=== PATIENT | female | born 1985 | race Caucasian/White ===

== ENCOUNTER 2025-06-05 16:02 | Outpatient (CLI) | payer OTHER ==
[2025-06-05 15:00] VITALS: BP 121/84
[2025-06-05 17:00] LABS: BASO % 0.2 % (0.1-1.2); EOS # 0.01 (0.04-0.54); EOS % 0.1 % (0.7-7.0); LYMPH # 0.89 (1.18-3.74); LYMPH % 8.9 % (19.3-53.1); MEAN PLATELET VOLUME 11.60 fl (9.4-12.4); MONO # 0.65 (0.24-0.82); MONO % 6.5 % (4.7-12.5); NEUT # 8.40 (1.56-6.13); NEUT % 84.0 % (34.0-71.1); RED CELL DISTRIBUTION WIDTH 16.4 % (11.6-14.4)
[2025-06-05 17:01] LABS: URINE APPEARANCE Clear; URINE BILIRRUBIN Negative (NEGATIVE); URINE BLOOD Negative; URINE COLOR Yellow; URINE GLUCOSE Negative (NEGATIVE); URINE KETONE 15 (NEGATIVE); URINE LEUKOCYTE Small; URINE NITRATE Negative; URINE PROTEIN 30 (NEGATIVE); URINE UROBILINOGEN 1.0 E.U./dl
[2025-06-05 17:05] LABS: URINE BACTERIA 2559.5 uL (0.0-1933); URINE EPITHELIAL CELLS 97.2 uL (0.0-38.8); URINE RBC 23.0 uL (0.0-20.8); URINE WBC 109.8 uL (0.0-23.2)
[2025-06-05 17:18] LABS: ALT/SGPT 13.0 U/L (12-78); AST/SGOT 15.0 U/L (15-37); BILIRUBIN TOTAL 0.26 mg/dL (0.3-1.2); BUN CREA RATIO 20.0 (7.0-25.0); CREATININE SERUM 0.55 mg/dL (0.55-1.02); GFR 122.42; GLOBULINA 3.6 G/DL (2.4-3.5); GLUCOSE FASTING 73.0 mg/dL (65-100); OSMOLALITY SERUM 276.0 MOSM/KG (275-295)
[2025-06-05 17:34] LABS: URINE CAST 0.14 uL (0.0-1.40)
[2025-06-05] MEDS ORDERED: SYNTHROID100 MCG PO (19:29)
[2025-06-05] MEDS ORDERED: IRON236 MG PO (19:30)
[2025-06-05 19:48] VITALS: BP 118/78; O2SAT 100
[2025-06-05 23:22] VITALS: BP 126/82; O2SAT 98
[2025-06-06 04:03] VITALS: BP 114/73
[2025-06-06 06:12] VITALS: BP 105/76; O2SAT 97
[2025-06-06 11:05] VITALS: BP 143/84
[2025-06-06 12:01] VITALS: BP 105/76
== END 2025-06-06 13:12 | disposition home or self-care (01) ==
LOC: OBS/DEL 16:02
PROVIDERS: ATTEND Obstetrics & Gynecology
DX: O26.893 Other specified pregnancy related conditions, third trimester (principal); Z3A.35 35 weeks gestation of pregnancy

== ENCOUNTER 2025-06-11 18:16 | Outpatient (CLI) | payer OTHER ==
[~2025-06-11 18:16] MED LIST: IRON236 MG PO; SYNTHROID100 MCG PO
== END 2025-06-11 19:11 | disposition home or self-care (01) ==
LOC: NST 18:16
PROVIDERS: ATTEND Obstetrics & Gynecology Maternal & Fetal Medicine
DX: Z34.83 Encounter for supervision of other normal pregnancy, third trimester (principal)

== ENCOUNTER 2025-06-25 13:34 | Inpatient (IN) | payer OTHER ==
[~2025-06-25] VITALS: Ht 177.8 cm; Wt 3.6 kg
[2025-06-25] MEDS ORDERED: MORPHINE SULFATE 4 MG/ML CARTRIDGE IV PRN (14:45)
[2025-06-25] MEDS ORDERED: MISOPROSTOL 25 MCG TABLET VAG ONE (14:45)
[2025-06-25 14:46] LABS: BASO % 0.2 % (0.1-1.2); EOS # 0.04 (0.04-0.54); EOS % 0.5 % (0.7-7.0); LYMPH # 1.99 (1.18-3.74); LYMPH % 23.6 % (19.3-53.1); MEAN PLATELET VOLUME 11.30 fl (9.4-12.4); MONO # 0.51 (0.24-0.82); MONO % 6.0 % (4.7-12.5); NEUT # 5.87 (1.56-6.13); NEUT % 69.5 % (34.0-71.1); RED CELL DISTRIBUTION WIDTH 17.8 % (11.6-14.4); URINE APPEARANCE Clear; URINE BILIRRUBIN Negative (NEGATIVE); URINE BLOOD Negative; URINE COLOR Yellow; URINE GLUCOSE Negative (NEGATIVE); URINE KETONE Negative (NEGATIVE); URINE LEUKOCYTE Small; URINE NITRATE Negative; URINE PROTEIN 30 (NEGATIVE); URINE UROBILINOGEN 1.0 E.U./dl
[2025-06-25 14:50] LABS: URINE BACTERIA 1286.2 uL (0.0-1933); URINE EPITHELIAL CELLS 22.6 uL (0.0-38.8); URINE RBC 12.7 uL (0.0-20.8); URINE WBC 17.6 uL (0.0-23.2)
[2025-06-25 14:53] LABS: URINE CAST 0.14 uL (0.0-1.40)
[2025-06-25 15:05] LABS: INR < 0.93
[2025-06-25 15:21] VITALS: BP 146/73
[2025-06-25 15:34] LABS: ALT/SGPT 19.0 U/L (12-78); AST/SGOT 15.0 U/L (15-37); BILIRUBIN TOTAL 0.26 mg/dL (0.3-1.2); BUN CREA RATIO 13.0 (7.0-25.0); CREATININE SERUM 0.56 mg/dL (0.55-1.02); GFR 119.9; GLOBULINA 4.1 G/DL (2.4-3.5); GLUCOSE FASTING 79.0 mg/dL (65-100); OSMOLALITY SERUM 276.0 MOSM/KG (275-295)
[2025-06-25 19:01] VITALS: BP 144/69
[2025-06-25 23:12] VITALS: BP 152/75
[2025-06-26 03:55] VITALS: BP 145/70
[2025-06-26] MEDS ORDERED: LEVOTHYROXINE SODIUM 175 MCG TABLET PO SCH (06:00)
[2025-06-26] MEDS ORDERED: OXYTOCIN 500 ML IV ONE (06:45)
[2025-06-26 07:34] VITALS: BP 140/81
[2025-06-26 11:04] VITALS: BP 157/74
[2025-06-26] MEDS ORDERED: MORPHINE SULFATE 4 MG/ML CARTRIDGE IV SCH (14:01)
[2025-06-26] MEDS ORDERED: KETOROLAC TROMETHAMINE 30 MG VIAL IV SCH (14:02)
[2025-06-26] MEDS ORDERED: ERYTHROMYCIN BASE OPHT 1GM EACH TUBE OP ONE (14:15)
[2025-06-26] MEDS ORDERED: OXYTOCIN 1,000 ML IV ONE (14:15)
[2025-06-26] MEDS ORDERED: OXYTOCIN 10 UNITS/ML VIAL IV ONE (14:15)
[2025-06-26] MEDS ORDERED: CEFAZOLIN SODIUM 1,000 MG VIAL IV SCH (14:15)
[2025-06-26] MEDS ORDERED: MORPHINE SULFATE 4 MG/ML VIAL IV ONE ×2 (16:30→17:30)
[2025-06-26] MEDS ORDERED: KETOROLAC TROMETHAMINE 30 MG VIAL ONE (17:52)
[2025-06-26] MEDS ORDERED: OXYTOCIN 10 UNITS/ML VIAL ONE (19:23)
[2025-06-26 19:51] VITALS: BP 147/77
[2025-06-27 01:19] VITALS: BP 125/72
[2025-06-27 04:00] VITALS: BP 126/77; O2SAT 98
[2025-06-27] MEDS ORDERED: ACETAMINOPHEN 500 MG GEL..CAP PO SCH (06:00)
[2025-06-27 06:14] LABS: BASO % 0.1 % (0.1-1.2); EOS # 0.02 (0.04-0.54); EOS % 0.3 % (0.7-7.0); LYMPH # 1.55 (1.18-3.74); LYMPH % 21.9 % (19.3-53.1); MEAN PLATELET VOLUME 11.70 fl (9.4-12.4); MONO # 0.50 (0.24-0.82); MONO % 7.1 % (4.7-12.5); NEUT # 4.98 (1.56-6.13); NEUT % 70.3 % (34.0-71.1); RED CELL DISTRIBUTION WIDTH 18.0 % (11.6-14.4)
[2025-06-27] MEDS ORDERED: DOCUSATE SODIUM 100MG CAP PO SCH (09:00)
[2025-06-27] MEDS ORDERED: PNV,CALCIUM 72/IRON/FOLIC ACID 1 TAB TABLET PO SCH (09:00)
[2025-06-27] MEDS ORDERED: SIMETHICONE 125 MG CAPSULE PO SCH (09:00)
[2025-06-27] MEDS ORDERED: GABAPENTIN 300 MG CAPSULE PO SCH (09:00)
[2025-06-27 09:12] VITALS: BP 145/82
[2025-06-27 16:22] VITALS: BP 136/81; O2SAT 98
[2025-06-28] VITALS: BP 140/80
[2025-06-28 09:20] VITALS: BP 137/71; O2SAT 98
== END 2025-06-28 13:28 | disposition home or self-care (01) | DRG 787 ==
LOC: O/R 13:34 → LDR 13:34 → O/R 06-26 13:16 → OB/GYN 06-26 18:09
PROVIDERS: ADMIT Obstetrics & Gynecology Gynecology; ATTEND Obstetrics & Gynecology Gynecology
PROC: 4A1HXCZ Monitoring of Products of Conception, Cardiac Rate, External Approach (ICD-10-PCS; 2025-06-25)
PROC: 10D00Z1 Extraction of Products of Conception, Low, Open Approach (ICD-10-PCS; principal; 2025-06-26 20:30)
DX: O82 Encounter for cesarean delivery without indication (principal); O10.92 Unspecified pre-existing hypertension complicating childbirth; O62.1 Secondary uterine inertia; Z3A.38 38 weeks gestation of pregnancy; Z37.0 Single live birth